=== PATIENT | female | born 2005 | race Caucasian/White ===

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

== ENCOUNTER 2023-02-10 14:42 | Emergency (ER) | payer MEDICAID ==
[~2023-02-10] VITALS: Ht 167 cm; Wt 118.0 kg
[2023-02-10 15:24] LABS: ALBUMIN 4.1 GM/DL (3.2-4.5)
[2023-02-10 15:25] LABS: POTASSIUM 4.3 MMOL/L (3.6-5.0)
[2023-02-10 15:26] LABS: CALCIUM 9.6 MG/DL (8.5-10.1)
[2023-02-10 15:27] LABS: TOTAL PROTEIN 7.8 GM/DL (6.4-8.2)
[2023-02-10 15:29] LABS: BILIRUBIN,TOTAL 0.2 MG/DL (0.1-1.0)
[2023-02-10 15:31] LABS: CREATININE SERUM 0.81 MG/DL (0.60-1.30)
[2023-02-10 15:33] LABS: BASOPHILS # (AUTO) 0.1 10^3/uL (0.0-0.1); BASOPHILS % (AUTO) 1 % (0-10); EOSINOPHILS # (AUTO) 0.1 10^3/uL (0.0-0.3); EOSINOPHILS % (AUTO) 1 % (0-10); HEMATOCRIT 39 % (35-52); HEMOGLOBIN 13.1 g/dL (11.5-16.0); LYMPHOCYTES # (AUTO) 4.1 10^3/uL (1.0-4.0); LYMPHOCYTES % (AUTO) 29 % (12-44); MEAN CORPUSCULAR HEMOGLOBIN 30 pg (25-34); MEAN CORPUSCULAR HGB CONC 33 g/dL (32-36); MEAN CORPUSCULAR VOLUME 91 fL (80-99); MEAN PLATELET VOLUME 10.1 fL (9.0-12.2); MONOCYTES # (AUTO) 1.1 10^3/uL (0.0-1.0); MONOCYTES % (AUTO) 8 % (0-12); NEUTROPHILS # (AUTO) 8.6 10^3/uL (1.8-7.8); NEUTROPHILS % (AUTO) 61 % (42-75); PLATELET COUNT 484 10^3/uL (130-400); WHITE BLOOD COUNT 14.1 10^3/uL (4.3-11.0)
--- NOTE | 2023-02-10 15:38 | ED GU-Female ---
General Chief Complaint: - Reproductive Stated Complaint: HEAVY VAGINAL BLEEDING Nursing Triage Note: PT AMB TO RM 10 PT CO OF HAVING A HEAVY MENSTRAL CYCLE PAST 2 DAYS STATES IS BLEEDING THROUGH A TAMPON ABOUT EVERY HOUR. PT ALSO HAVING CRAMPING IN LOWER ABD. R SIDE HAS WORSE DISCOMFORT 01/17. PT SENT FROM [facility] Source: patient Exam Limitations: no limitations (DEBORAH WYNN APRN) History of Present Illness Date Seen by Provider: Feb 10, 2023 Time Seen by Provider: 15:16 Initial Comments 17-year-old female presents to the ED for heavy vaginal bleeding. She states that her menstrual cycle started last 02/03/2023. She reports that over the last 2 days her bleeding has become much heavier, states that she is going through a tampon every hour, and passed a blood clot. She states that her menstrual cycle is lasting longer than usual, states that usually last approximately 5 to 6 days, this is day 8. She is complaining of lower abdominal cramping, states that the pain feels like her periods, just worse. She reports that she was vomiting this morning is also complaining of dizziness. Denies fevers, dysuria. Has medical history includes PCOS. She states that her menstrual cycles are often long and slightly heavy, but this 1 is worse. (DEBORAH WYNN APRN) Allergies and Home Medications Allergies Coded Allergies: albuterol (Verified Allergy, Severe, Shortness of Breath, 05/10/21) Uses Xopenex instead Patient Home Medication List Home Medication List Reviewed: Yes (DEBORAH WYNN APRN) Cephalexin (Cephalexin) 500 Mg Tablet, 500 MG PO TID Prescribed by: ABDIAS NAVA on 05/30/22 1621 Doxycycline Hyclate (Doxycycline Hyclate) 100 Mg Tablet, 100 MG PO BID Prescribed by: ELOISE EMERY on 10/09/222234 Ibuprofen (Ibuprofen) 800 Mg Tablet, 800 MG PO Q8H PRN for PAIN Prescribed by: RHODA GRAY on 03/01/22 173 Levalbuterol HCl (Levalbuterol HCl) 1.25 Mg/3 Ml Vial.neb, 1.25 MG IH Q4H PRN for WHEEZING Prescribed by: ELOISE EMERY on 10/09/222234 Methylprednisolone (Methylprednisolone Dose Pack) 4 Mg Tab.ds.pk, 4 MG PO UD Prescribed by: ELOISE EMERY on 10/09/222234 Ondansetron (Ondansetron Odt) 4 Mg Tab.rapdis, 4 MG SL Q4H PRN for NAUSEA/VOMITING Prescribed by: ABDIAS NAVA on 05/30/22 162 Prednisone (Prednisone) 20 Mg Tab, 40 MG PO DAILY Prescribed by: RHODA GRAY on 04/03/22 0300 Review of Systems Review of Systems Constitutional: see HPI (DEBORAH WYNN APRN) Past Deitnbf-Ekieec-Fejdly Hx Patient Social History Tobacco Use?: No Use of E-Cig and/or Vaping dev: Yes E-Cig or Vaping type used: Nicotine Substance use?: No Alcohol Use?: Yes Alcohol type: Hard Liquor Alcohol Frequency: Once in a while Pt feels they are or have been: No (DEBORAH WYNN APRN) Immunizations Up To Date Tetanus Booster (TDap): Less than 5yrs First/Initial COVID19 Vaccinat: NA Second COVID19 Vaccination Shabbir: NA Third COVID19 Vaccination Date: NA (DEBORAH WYNN APRN) Seasonal Allergies Seasonal Allergies: No (DEBORAH WYNN APRN) Past Medical History Surgery/Hospitalization HX: RT KNEE SCOPE; Seasonal Asthma, PCOS Surgeries: Yes (RT KNEE, bone marrow biopsy) Orthopedic Respiratory: Yes Asthma Cardiac: No Neurological: No Last Menstrual Period: February 04, 2023 Reproductive Disorders: Yes Female Reproductive Disorders: Polycystic Ovarian Dis Genitourinary: No Gastrointestinal: No Musculoskeletal: No Endocrine: No HEENT: No Hearing Impairment: Denies Cancer: No Psychosocial: No Integumentary: No Blood Disorders: Yes (Idiopathic thrombocytosis) (DEBORAH WYNN APRN) Physical Exam Vital Signs Vital Signs - First Documented 02/10/23 14:50 Pulse 85 Resp 12 B/P (MAP) 129/85 (100) Pulse Ox 100 (ABDIAS ALFARO MD) Vital Signs Capillary Refill : Less Than 3 Seconds (DEBORAH WYNN APRN) Height, Weight, BMI Height: '" Weight: lbs. oz. kg; 42.00 BMI Method: General Appearance: WD/WN, no apparent distress Neck: supple, normal inspection Cardiovascular: regular rate, rhythm Respiratory: lungs clear, normal breath sounds, no respiratory distress, no accessory muscle use Gastrointestinal: normal bowel sounds, soft, tenderness (Right lower quadrant) Pelvic: normal external exam, normal adnexa, vaginal bleeding (Small amount of blood in vaginal canal, no active bleeding noted) Extremities: normal range of motion, normal inspection Neurologic/Psychiatric: alert, normal mood/affect Skin: normal color, warm/dry (DEBORAH WYNN APRN) Progress/Results/Core Measures Suspected Sepsis SIRS Temperature: Pulse: 85 Respiratory Rate: 12 Laboratory Tests 02/10/23 14:55: White Blood Count 14.1H Blood Pressure 129 /85 Mean: 100 Laboratory Tests 02/10/23 14:55: Creatinine 0.81, INR Comment 1.1, Platelet Count 484H, Total Bilirubin 0.2 (DEBORAH WYNN APRN) Results/Orders Lab Results Laboratory Tests Test 02/10/23 14:55 02/10/23 15:54 02/10/23 16:00 Range/Units White Blood Count 14.1 H 4.3-11.0 10^3/uL Red Blood Count 4.34 3.80-5.11 10^6/uL Hemoglobin 13.1 11.5-16.0 g/dL Hematocrit 39 35-52 % Mean Corpuscular Volume 91 80-99 fL Mean Corpuscular Hemoglobin 30 25-34 pg Mean Corpuscular Hemoglobin Concent 33 32-36 g/dL Red Cell Distribution Width 13.1 10.0-14.5 % Platelet Count 484 H 130-400 10^3/uL Mean Platelet Volume 10.1 9.0-12.2 fL Immature Granulocyte % (Auto) 0 % Neutrophils (%) (Auto) 61 42-75 % Lymphocytes (%) (Auto) 29 12-44 % Monocytes (%) (Auto) 8 0-12 % Eosinophils (%) (Auto) 1 0-10 % Basophils (%) (Auto) 1 0-10 % Neutrophils # (Auto) 8.6 H 1.8-7.8 10^3/uL Lymphocytes # (Auto) 4.1 H 1.0-4.0 10^3/uL Monocytes # (Auto) 1.1 H 0.0-1.0 10^3/uL Eosinophils # (Auto) 0.1 0.0-0.3 10^3/uL Basophils # (Auto) 0.1 0.0-0.1 10^3/uL Immature Granulocyte # (Auto) 0.1 0.0-0.1 10^3/uL Neutrophils % (Manual) 58 % Lymphocytes % (Manual) 34 % Monocytes % (Manual) 7 % Eosinophils % (Manual) 1 % Blood Morphology Comment NORMAL Prothrombin Time 14.2 12.2-14.7 SEC INR Comment 1.1 0.8-1.4 Activated Partial Thromboplast Time 35 24-35 SEC Sodium Level 140 135-145 MMOL/L Potassium Level 4.3 3.6-5.0 MMOL/L Chloride Level 109 H 98-107 MMOL/L Carbon Dioxide Level 22 21-32 MMOL/L Anion Gap 9 5-14 MMOL/L Blood Urea Nitrogen 14 7-18 MG/DL Creatinine 0.81 0.60-1.30 MG/DL Estimat Glomerular Filtration Rate 107 BUN/Creatinine Ratio 17 Glucose Level 77 70-105 MG/DL Calcium Level 9.6 8.5-10.1 MG/DL Corrected Calcium 9.5 8.5-10.1 MG/DL Total Bilirubin 0.2 0.1-1.0 MG/DL Aspartate Amino Transf (AST/SGOT) 19 5-34 U/L Alanine Aminotransferase (ALT/SGPT) 20 0-55 U/L Alkaline Phosphatase 61 40-136 U/L C-Reactive Protein High Sensitivity 0.49 0.00-0.50 MG/DL Total Protein 7.8 6.4-8.2 GM/DL Albumin 4.1 3.2-4.5 GM/DL Thyroid Stimulating Hormone (TSH) 1.32 0.35-4.94 UIU/ML Serum Test, Qualitative NEGATIVE NEGATIVE Urine Color YELLOW Urine Clarity CLEAR Urine pH 5.5 5-9 Urine Specific [place] >=1.030 1.016-1.022 Urine Protein NEGATIVE NEGATIVE Urine Glucose (UA) NEGATIVE NEGATIVE Urine Ketones NEGATIVE NEGATIVE Urine Nitrite NEGATIVE NEGATIVE Urine Bilirubin NEGATIVE NEGATIVE Urine Urobilinogen 0.2 < = 1.0 MG/DL Urine Leukocyte Esterase NEGATIVE NEGATIVE Urine RBC (Auto) 3+ H NEGATIVE Urine RBC >100 H /HPF Urine WBC NONE /HPF Urine Crystals NONE /LPF Urine Bacteria NEGATIVE /HPF Urine Casts NONE /LPF Urine Mucus NEGATIVE /LPF Urine Culture Indicated NO (ABDIAS ALFARO MD) Micro Results Microbiology 02/10/23 Wet Prep - Final, Complete (ABDIAS ALFARO MD) Vital Signs/I&O Capillary Refill : Less Than 3 Seconds (DEBORAH WYNN APRN) Blood Pressure Mean: 100 Progress Note : Progress Note Patient seen and evaluated, resting comfortably in bed, no acute distress. Work-up initiated including CBC, CMP, UA, urine , hCG qualitative, CRP. IV fluids ordered. Labs reviewed. CBC shows slightly elevated WBC 14.1, slightly elevated platelet count 484, hemoglobin and hematocrit normal. Elevation in these levels could be related to blood loss or dehydration. CMP grossly normal, chloride slightly elevated 109, also likely related to blood loss or dehydration. CRP normal. TSH normal. Serum negative. Urinalysis shows 3+ RBCs, negative for nitrates, leukocytes, WBCs, bacteria. Wet mount shows few WBCs, negative for trichomoniasis, yeast, and clue cells. Small amount of blood in vaginal canal, no active bleeding noted on pelvic exam. Results discussed with patient. Patient is comfortable discharge at this time. Discharge instructions and return precautions provided. (DEBORAH WYNN APRN) Departure Impression Primary Impression: Abnormal vaginal bleeding Disposition: HOME, SELF-CARE Condition: Stable Departure-Patient Inst. Decision time for Depature: 17:18 (DEBORAH WYNN APRN) Referrals: EMILY MAZARIEGOS APRN (PCP) Primary Care Physician [facility] (Family) Primary Care Physician Patient Instructions: Heavy periods Add. Discharge Instructions: Take 800 mg of ibuprofen every 8 hours with food and continue taking until 24 hours after the bleeding stops. Follow-up with your primary care provider or OBGYN. Return if you are saturating heavy menstrual pads every hour for several hours, you have severe dizziness, severe abdominal pain, or any other new, concerning, or worsening symptoms. All discharge instructions reviewed with patient and/or family. Voiced understanding. Work/School Note: Work Release Form Date Seen in the Emergency Department: Feb 10, 2023 Return to Work: Feb 12, 2023 Restrictions: No Restrictions ATTENDING PHYSICIAN NOTE: I was physically present as attending physician in the emergency department during the care of this patient, but I was not directly involved in the decision making or delivery of care for this patient. (ABDIAS ALFARO MD) DEBORAH WYNN APRN Feb 10, 2023 15:38 ABDIAS ALFARO MD Feb 11, 2023 08:03
[2023-02-10] MEDS ORDERED: NS IV 1000 ML 1,000 ML IV SCH (15:45)
[2023-02-10 16:00] LABS: BILIRUBIN,URINE NEGATIVE (NEGATIVE); CLARITY,URINE CLEAR; COLOR,URINE YELLOW; GLUCOSE, URINE (UA) NEGATIVE (NEGATIVE); KETONES,URINE NEGATIVE (NEGATIVE); LEUKOCYTE ESTERASE ,URINE NEGATIVE (NEGATIVE); NITRITE,URINE NEGATIVE (NEGATIVE); PH,URINE 5.5 (5-9); PROTEIN,URINE NEGATIVE (NEGATIVE)
[2023-02-10 16:03] LABS: INR 1.1 (0.8-1.4); PROTHROMBIN TIME PATIENT 14.2 SEC (12.2-14.7)
[2023-02-10 16:14] LABS: EOSINOPHILS % (MANUAL) 1 %; LYMPHOCYTES % (MANUAL) 34 %; MONOCYTES % (MANUAL) 7 %; NEUTROPHILS % (MANUAL) 58 %; RBC MORPH NORMAL
[2023-02-10 16:21] LABS: BACTERIA,URINE NEGATIVE /HPF; RBC,URINE >100 /HPF
[2023-02-10 17:38] VITALS: BP 126/82
== END 2023-02-10 17:41 | disposition home or self-care (01) ==
LOC: EDUNIT# 14:42 → ER 14:44
DX: N93.9 Abnormal uterine and vaginal bleeding, unspecified (principal); F17.290 Nicotine dependence, other tobacco product, uncomplicated; Z28.310 Unvaccinated for COVID-19
CPT/HCPCS: 36415; 80053; 81000; 84443; 84703; 85007; 85027; 85610; 85730; 86141; 87210; 87491; 87591

== ENCOUNTER 2023-06-13 12:30 | Outpatient (RCR) | payer OTHER, MEDICAID ==
[2023-06-13 13:54] LABS: BASOPHILS # (AUTO) 0.1 10^3/uL (0.0-0.1); BASOPHILS % (AUTO) 1 % (0-10); EOSINOPHILS # (AUTO) 0.1 10^3/uL (0.0-0.3); EOSINOPHILS % (AUTO) 0 % (0-10); HEMATOCRIT 43 % (35-52); HEMOGLOBIN 13.7 g/dL (11.5-16.0); LYMPHOCYTES # (AUTO) 4.1 10^3/uL (1.0-4.0); LYMPHOCYTES % (AUTO) 33 % (12-44); MEAN CORPUSCULAR HEMOGLOBIN 29 pg (25-34); MEAN CORPUSCULAR HGB CONC 32 g/dL (32-36); MEAN CORPUSCULAR VOLUME 91 fL (80-99); MEAN PLATELET VOLUME 9.7 fL (9.0-12.2); MONOCYTES % (AUTO) 8 % (0-12); NEUTROPHILS # (AUTO) 7.2 10^3/uL (1.8-7.8); NEUTROPHILS % (AUTO) 58 % (42-75); PLATELET COUNT 533 10^3/uL (130-400); WHITE BLOOD COUNT 12.5 10^3/uL (4.3-11.0)
== END 2023-07-10 | disposition home or self-care (01) ==
LOC: ONC 12:30
PROVIDERS: ATTEND Internal Medicine Hematology & Oncology
DX: D75.839 Thrombocytosis, unspecified (principal); E66.01 Morbid (severe) obesity due to excess calories; D50.9 Iron deficiency anemia, unspecified
CPT/HCPCS: 85025; G0463; 36415; 99214